=== PATIENT | male | born 1960 | race African-American/Black ===

== ENCOUNTER 2019-11-22 07:37 | Outpatient (CLI) | payer BC ==
--- NOTE | 2019-11-22 09:02 | MRI ---
MRI OF RIGHT SHOULDER: DATE: 11/22/2019. PROVIDED CLINICAL HISTORY: Right shoulder pain. FINDINGS: There is full-thickness, full-width retracted tearing of the supraspinatus tendon with retraction to about the level of the acromion. There is extension of tear to involve the anterior fibers of the in fraspinatus tendon in a partial thickness undersurface manner suspected. Subscapularis and teres min or appear intact. Long head biceps tendon appears intact and normally located. There is signal alteration in the region of the superior labrum that may reflect SLAP tear. Full-thi ckness articular cartilage loss involves large portions of the glenohumeral joint. There is a small glenohumeral joint effusion, freely communicating from the subacromial subdeltoid bursa. Acromioclavicular osteoarthrosis is demonstrated, with a ganglion cyst noted at the cranial aspects o f the acromioclavicular joint. This measures approximately 1.9 cm. Rotator cuff muscular volume appears preserved. No focal concerning regional marrow or muscular sign al abnormality apparent. IMPRESSION: 1. Full-thickness, full-width retracted tearing of the supraspinatus tendon with extension to involv e the anterior fibers of the infraspinatus tendon in a partial thickness undersurface manner suspecte d. 2. Findings suspicious for SLAP tear. 3. Degenerative chondrosis involving the glenohumeral joint. 4. Acromioclavicular joint osteoarthrosis with ganglion cyst formation. POS: [facility]
== END 2019-11-22 07:38 | disposition home or self-care (01) ==
LOC: SCSMRI 07:37
PROVIDERS: ATTEND Orthopaedic Surgery
DX: M25.511 Pain in right shoulder (principal); M19.011 Primary osteoarthritis, right shoulder; M67.411 Ganglion, right shoulder; M75.121 Complete rotator cuff tear or rupture of right shoulder, not specified as traumatic

== ENCOUNTER 2020-04-10 18:12 | Emergency (ER) | payer BC, OTHER ==
[2020-04-10 20:01] LABS: #Basophils 0.1 thou/uL (0.0-0.2); #Lymphocytes 1.8 thou/uL (1.20-3.40); #Neutrophils 3.8 thou/uL (1.40-6.50); %Basophils 0.9 % (0.0-1.0); %Eosinophils 0.7 % (0.0-10.0); %Lymphocytes 26.5 % (21.0-51.0); %Monocytes 14.8 % (0.0-10.0); %Neutrophils 57.1 % (42.0-75.0); Hemoglobin 15.8 g/dL (14.0-18.0); Mean Corpuscular HGB CONC 32.5 g/dL (32.0-36.0); Mean Corpuscular Hemoglobin 27.8 pg (27.0-31.0); Mean Corpuscular Volume 85.4 fL (78.0-98.0); Mean Platelet Volume 8.3 fL (7.4-10.4); Platelet Count 275 thou/uL (130-400); RBC Distribution Width 13.2 % (11.5-14.5); Red Blood Cell (RBC) Count 5.69 mill/uL (4.70-6.10); White Blood Cell (WBC) Count 6.7 thou/uL (4.8-10.8)
[2020-04-10 20:45] LABS: ALT (SGPT) 54 U/L (8-55); AST (SGOT) 42 U/L (5-34); Albumin 4.1 g/dL (3.5-5.0); Alkaline Phosphatase 77 U/L (40-110); Anion Gap 12 mmol/L (10-20); BUN (Urea Nitrogen) 10 mg/dL (8.4-25.7); Bilirubin, Total 0.3 mg/dL (0.2-1.2); Calc. Creatinine Clearance 0 mL/min (70-130); Calcium 9.9 mg/dL (7.8-10.44); Carbon Dioxide 23 mmol/L (22-29); Chloride 107 mmol/L (98-107); Estimated GFR-MDRD 79; Globulin 3.6 g/dL (2.4-3.5); Glucose 91 mg/dL (70-105); Protein, Total 7.7 g/dL (6.0-8.3); Sodium 138 mmol/L (136-145)
== END 2020-04-10 21:01 | disposition home or self-care (01) ==
LOC: ERS 18:12
DX: E86.0 Dehydration (principal); E78.5 Hyperlipidemia, unspecified; Z79.899 Other long term (current) drug therapy
CPT/HCPCS: 80053; 85025; 96360

== ENCOUNTER 2021-06-12 14:06 | Outpatient (CLI) | payer BC | END 2021-06-12 14:07 | disposition home or self-care (01) | LOC: BICULT 14:06 | PROVIDERS: ATTEND Family Medicine | DX: N28.1 Cyst of kidney, acquired (principal) | CPT/HCPCS: 76770 ==

== ENCOUNTER 2024-03-08 09:41 | Outpatient (CLI) | payer BC | END 2024-03-08 09:42 | disposition home or self-care (01) | LOC: BICULT 09:41 | PROVIDERS: ATTEND Family Medicine | DX: N28.1 Cyst of kidney, acquired (principal) | CPT/HCPCS: 76770 ==

== ENCOUNTER 2024-09-28 10:58 | Emergency (ER) | payer BC | END 2024-09-28 14:28 | disposition home or self-care (01) | LOC: ERS 10:58 | DX: J11.00 Influenza due to unidentified influenza virus with unspecified type of pneumonia (principal); E78.5 Hyperlipidemia, unspecified; Z79.899 Other long term (current) drug therapy | CPT/HCPCS: 71046; 87428 ==

== ENCOUNTER 2025-06-16 19:02 | Inpatient (IN) | payer BC, MEDICARE ==
[~2025-06-16 19:02] MED LIST: Iopamidol-370 76% 500 ML MDV (1 ML CHARGE) ONE
[2025-06-16 19:42] LABS: #Basophils 0.05 10x3/uL (0.0-0.2); #Eosinophils Less than 0.03 10x3/uL (0.0-0.7); #Monocytes 1.49 10x3/uL (0.11-0.59); #Neutrophils 7.96 10x3/uL (1.40-6.50); %Basophils 0.5 % (0.0-1.0); %Eosinophils 0.2 % (0.0-10.0); %Lymphocytes 13.7 % (21.0-51.0); %Monocytes 13.5 % (0.0-10.0); %Neutrophils 71.8 % (42.0-75.0); Hematocrit 44.8 % (42.0-52.0); Hemoglobin 14.3 g/dL (14.0-18.0); Mean Corpuscular Hemoglobin 26.4 pg (27.0-31.0); Mean Corpuscular Volume 82.7 fL (78.0-98.0); Platelet Count 236 10x3/uL (130-400); Red Blood Cell (RBC) Count 5.42 mill/uL (4.70-6.10); White Blood Cell (WBC) Count 11.06 10x3/uL (4.8-10.8)
[2025-06-16 19:53] LABS: INR-International Normal Ratio 1.1; Prothrombin Time 13.9 sec (12.0-14.7)
[2025-06-16 19:54] LABS: PTT 25.6 sec (22.9-36.1)
[2025-06-16 19:58] LABS: ALT (SGPT) 23 U/L (Less than 45); AST (SGOT) 21 U/L (11-34); Albumin 4.0 g/dL (3.1-4.5); Alkaline Phosphatase 89 U/L (40-110); Anion Gap 15 mmol/L (10-20); BUN (Urea Nitrogen) 12 mg/dL (8.4-25.7); Bilirubin, Total 0.5 mg/dL (0.3-1.2); Calc. Creatinine Clearance 0 mL/min (70-130); Calcium 10.9 mg/dL (7.8-10.44); Carbon Dioxide 21 mmol/L (23-31); Chloride 107 mmol/L (98-107); Globulin 3.9 g/dL (2.4-3.5); Glucose 131 mg/dL (80-115); Potassium 4.0 mmol/L (3.5-5.1); Sodium 139 mmol/L (136-145)
[2025-06-16] MEDS ORDERED: Acetaminophen 500 MG TAB ONE (20:04)
[2025-06-16] MEDS ORDERED: Ondansetron PF 4 MG/2 ML Vial ONE (20:04)
[2025-06-16] MEDS ORDERED: metroNIDAZOLE 500 MG (100 mL) BAG ONE (21:18)
[2025-06-16] MEDS ORDERED: Ciprofloxacin Lactate D5W 400 mg (200 mL) BAG ONE (21:18)
[2025-06-16 22:56] VITALS: BMI 36.1
[2025-06-16] MEDS ORDERED: Acetaminophen 325 MG TAB PO PRN (23:15)
[2025-06-16] MEDS: Ciprofloxacin Lactate/D5W 400 MG in Premix 1 BAG IVPB SCH (23:18)
[2025-06-16] MEDS: Senokot S 8.6-50 MG TAB PO SCH (23:56)
[2025-06-17 06:12] LABS: #Basophils 0.03 10x3/uL (0.0-0.2); #Eosinophils 0.04 10x3/uL (0.0-0.7); #Monocytes 1.55 10x3/uL (0.11-0.59); #Neutrophils 7.69 10x3/uL (1.40-6.50); %Basophils 0.3 % (0.0-1.0); %Eosinophils 0.4 % (0.0-10.0); %Lymphocytes 14.7 % (21.0-51.0); %Monocytes 14.1 % (0.0-10.0); %Neutrophils 70.0 % (42.0-75.0); Hematocrit 42.8 % (42.0-52.0); Hemoglobin 14.0 g/dL (14.0-18.0); Mean Corpuscular Hemoglobin 27.1 pg (27.0-31.0); Mean Corpuscular Volume 82.8 fL (78.0-98.0); Platelet Count 218 10x3/uL (130-400); Red Blood Cell (RBC) Count 5.17 mill/uL (4.70-6.10); White Blood Cell (WBC) Count 10.97 10x3/uL (4.8-10.8)
[2025-06-17 06:37] LABS: Anion Gap 12 mmol/L (10-20); BUN (Urea Nitrogen) 11 mg/dL (8.4-25.7); Calc. Creatinine Clearance 123 mL/min (70-130); Calcium 10.3 mg/dL (7.8-10.44); Carbon Dioxide 23 mmol/L (23-31); Chloride 108 mmol/L (98-107); Glucose 131 mg/dL (80-115); Potassium 4.1 mmol/L (3.5-5.1); Sodium 139 mmol/L (136-145)
[2025-06-17] MEDS ORDERED: Ciprofloxacin Lactate/D5W 400 MG in Premix 1 BAG IVPB SCH (09:00)
[2025-06-17] MEDS: Senokot S 8.6-50 MG TAB PO SCH (10:17)
[2025-06-17] MEDS: PNEUMOC 20-VAL CONJ-DIP CRM/PF 0.5 ML SYRINGE IM ONE (10:17)
[2025-06-17] MEDS: FLU (Fluad Triv) 25-26 (65UP)PF 45 MCG/0.5 ML Syringe IM ONE (10:30)
[2025-06-17] MEDS: GoLYTELY 4,000 ml Bottle PO SCH (12:59)
[2025-06-17] MEDS: Acetaminophen 325 MG TAB PO PRN (17:11)
[2025-06-17] MEDS: Ketorolac Tromethamine 30 MG (1 mL) VIAL IVP SCH (23:17)
[2025-06-17] MEDS: Ketorolac Tromethamine 30 MG (1 mL) VIAL ONE (23:37)
[2025-06-18 06:33] LABS: #Basophils 0.03 10x3/uL (0.0-0.2); #Eosinophils 0.04 10x3/uL (0.0-0.7); #Monocytes 1.76 10x3/uL (0.11-0.59); #Neutrophils 8.02 10x3/uL (1.40-6.50); %Basophils 0.3 % (0.0-1.0); %Eosinophils 0.4 % (0.0-10.0); %Lymphocytes 13.2 % (21.0-51.0); %Monocytes 15.5 % (0.0-10.0); %Neutrophils 70.2 % (42.0-75.0); Hematocrit 41.3 % (42.0-52.0); Hemoglobin 14.0 g/dL (14.0-18.0); Mean Corpuscular Hemoglobin 28.1 pg (27.0-31.0); Mean Corpuscular Volume 82.9 fL (78.0-98.0); Platelet Count 230 10x3/uL (130-400); Red Blood Cell (RBC) Count 4.98 mill/uL (4.70-6.10); White Blood Cell (WBC) Count 11.39 10x3/uL (4.8-10.8)
[2025-06-18 06:47] LABS: Anion Gap 13 mmol/L (10-20); BUN (Urea Nitrogen) 11 mg/dL (8.4-25.7); Calc. Creatinine Clearance 111 mL/min (70-130); Calcium 10.1 mg/dL (7.8-10.44); Carbon Dioxide 25 mmol/L (23-31); Chloride 104 mmol/L (98-107); Glucose 105 mg/dL (80-115); Potassium 3.8 mmol/L (3.5-5.1); Sodium 138 mmol/L (136-145)
[2025-06-18] MEDS: Ondansetron PF 4 MG/2 ML Vial IVP PRN (13:35)
[2025-06-18] MEDS: Ketorolac Tromethamine 30 MG (1 mL) VIAL IVP SCH (21:26)
[2025-06-19 04:26] LABS: #Basophils 0.03 10x3/uL (0.0-0.2); #Eosinophils 0.05 10x3/uL (0.0-0.7); #Monocytes 2.08 10x3/uL (0.11-0.59); #Neutrophils 9.48 10x3/uL (1.40-6.50); %Basophils 0.2 % (0.0-1.0); %Eosinophils 0.4 % (0.0-10.0); %Lymphocytes 9.2 % (21.0-51.0); %Monocytes 16.1 % (0.0-10.0); %Neutrophils 73.6 % (42.0-75.0); Hematocrit 43.0 % (42.0-52.0); Hemoglobin 13.9 g/dL (14.0-18.0); Mean Corpuscular Hemoglobin 26.7 pg (27.0-31.0); Mean Corpuscular Volume 82.7 fL (78.0-98.0); Platelet Count 258 10x3/uL (130-400); Red Blood Cell (RBC) Count 5.20 mill/uL (4.70-6.10); White Blood Cell (WBC) Count 12.88 10x3/uL (4.8-10.8)
[2025-06-19 04:44] LABS: Anion Gap 15 mmol/L (10-20); BUN (Urea Nitrogen) 14 mg/dL (8.4-25.7); Calc. Creatinine Clearance 107 mL/min (70-130); Calcium 10.5 mg/dL (7.8-10.44); Carbon Dioxide 21 mmol/L (23-31); Chloride 105 mmol/L (98-107); Glucose 131 mg/dL (80-115); Potassium 3.8 mmol/L (3.5-5.1); Sodium 137 mmol/L (136-145)
[2025-06-19] MEDS ORDERED: PROPOFOL 20 ML ONE (09:34)
[2025-06-19] MEDS ORDERED: SUCCINYLCHOLINE/SOD CL,ISO/PF 200 MG/10 ML SYRINGE FS ONE (09:35)
[2025-06-19] MEDS ORDERED: Lidocaine 1% PF 5 ML VIAL ONE ×2 (09:35→09:36)
[2025-06-19] MEDS ORDERED: Ondansetron PF 4 MG/2 ML Vial ONE (09:56)
[2025-06-19] MEDS: Mineral Oil ENEMA PR SCH ×2 (12:41→15:51)
[2025-06-21 09:31] VITALS: BP 113/74; TEMP 98.6
== END 2025-06-21 12:00 | disposition home or self-care (01) | DRG 392 ==
LOC: ERS 19:02 → T4-B 21:45
PROVIDERS: ADMIT Internal Medicine; ATTEND Internal Medicine
PROC: 3E03329 Introduction of Other Anti-infective into Peripheral Vein, Percutaneous Approach (ICD-10-PCS; 2025-06-16)
PROC: 3E0234Z Introduction of Serum, Toxoid and Vaccine into Muscle, Percutaneous Approach (ICD-10-PCS; 2025-06-17)
PROC: 3E02340 Introduction of Influenza Vaccine into Muscle, Percutaneous Approach (ICD-10-PCS; 2025-06-17)
PROC: 0DJD8ZZ Inspection of Lower Intestinal Tract, Via Natural or Artificial Opening Endoscopic (ICD-10-PCS; principal; 2025-06-19)
DX: K52.89 Other specified noninfective gastroenteritis and colitis (principal); K56.41 Fecal impaction; Z88.0 Allergy status to penicillin; E78.5 Hyperlipidemia, unspecified; Z98.890 Other specified postprocedural states; E66.9 Obesity, unspecified; Z68.36 Body mass index [BMI] 36.0-36.9, adult; K64.4 Residual hemorrhoidal skin tags; K64.8 Other hemorrhoids; Z79.899 Other long term (current) drug therapy
CPT/HCPCS: 36415; 71045; 74018; 74177; 80048; 80053; 82378; 83605; 84484; 85025; 85610; 85730; 87040; 90471; 90653; 90677; 93005; 96365; 96375; G0009; J0744; J1100; J1885; J2405; J2704; J7030; Q9967

== ENCOUNTER 2025-08-28 19:39 | Emergency (ER) | payer BC, MEDICARE | END 2025-08-28 21:43 | disposition left against medical advice (07) | LOC: ERS 19:39 | DX: Z53.21 Procedure and treatment not carried out due to patient leaving prior to being seen by health care provider (principal) ==